=== PATIENT | female | born 1960 | race Caucasian/White ===

== ENCOUNTER 2018-06-14 10:00 | Inpatient (IN) ==
[2018-06-14 12:22] LABS: Appearance,Urine CLEAR; Bilirubin,Urine NEG (NEG); Color,Urine STRAW; Glucose,Urine (UA) NEGATIVE (NEG); Leukocyte Esterase,Urine NEG /uL (NEG); Protein,Urine NEG (NEG); Specific Gravity,Urine 1.006 (1.000-1.035); Urine Blood NEG mg/dL (<0.03); Urobilinogen,Urine NEG (NEG)
[2018-06-14 13:34] LABS: Blood Urea Nitrogen 8 mg/dl (6-20)
[2018-06-14 15:00] LABS: Basophils # (Auto) 0 K/mcL (0.0-0.3); Basophils % (Auto) 0.6 % (0.0-2.0); Eosinophils # (Auto) 0.2 K/mcL (0.0-0.7); Eosinophils % (Auto) 3.2 % (0.0-7.0); Granulocytes % (Auto) 70.8 % (38.0-78.0); Lymphocytes # (Auto) 0.9 K/mcL (1.5-4.8); Lymphocytes % (Auto) 14.5 % (15.5-49.0); Mean Cell Volume 93.4 fL (80.0-100.0); Mean Corpuscular HGB Conc 33.5 g/dL (31.0-36.0); Mean Corpuscular Hemoglobin 31.3 pg (26.0-34.0); Monocytes # (Auto) 0.7 K/mcL (0.1-0.9); Monocytes % (Auto) 10.9 % (1.0-12.0); Platelet Count 197 K/mcL (140-440); Red Cell Distribution Width 12.9 % (11.5-14.5)
[2018-06-16] MEDS ORDERED: 0.9 % SODIUM CHLORIDE 250 ML IV SCH (15:30)
[2018-06-19] MEDS ORDERED: ceFAZolin 1 GM VIAL IV SCH (06:00)
[2018-06-19] MEDS ORDERED: CELECOXIB 200 MG CAPSULE PO SCH (06:00)
[2018-06-19] MEDS ORDERED: PREGABALIN 75 MG CAPSULE PO SCH (06:00)
[2018-06-19] MEDS ORDERED: oxyCODONE 10 MG TAB.ER.12H PO SCH (06:00)
[2018-06-19] MEDS ORDERED: 0.9 % SODIUM CHLORIDE 9 ML, KETOROLAC 30 MG, ROPIVACAINE HCL/PF 49.5 ML, EPINEPHrine 0.... IJ SCH (10:00)
[2018-06-19] MEDS ORDERED: DEXAMETHASONE 10 MG/ML VIAL IV ONE (11:30)
[2018-06-19] MEDS ORDERED: KETAMINE 100 MG/ML ML IV ONE (11:30)
[2018-06-19] MEDS ORDERED: ONDANSETRON 4 MG/2 ML VIAL IV ONE (11:30)
[2018-06-19] MEDS ORDERED: TRANEXAMIC ACID 1,000 MG/10 ML VIAL IV ONE ×2 (11:30→13:07)
[2018-06-19] MEDS ORDERED: GLYCOPYRROLATE 0.2 MG/ML VIAL IV ONE (11:30)
[2018-06-19] MEDS ORDERED: ROPIVACAINE HCL/PF 20 ML VIAL IJ ONE (11:30)
[2018-06-19] MEDS ORDERED: PROPOFOL 200 MG/20 ML VIAL IV ONE (11:30)
[2018-06-19] MEDS ORDERED: fentaNYL 100 MCG/2 ML VIAL IV ONE (11:30)
[2018-06-19] MEDS ORDERED: MIDAZOLAM 2 MG/2 ML VIAL IV ONE (11:30)
[2018-06-19] MEDS ORDERED: LIDOCAINE HCL/PF 100 MG/5 ML SYRINGE IV ONE (11:30)
[2018-06-19] MEDS ORDERED: GENTAMICIN SULFATE 800 MG/20 ML VIAL IR ONE (12:12)
[2018-06-19] MEDS ORDERED: MEPERIDINE 25 MG/ML SYRINGE IV PRN (12:48)
[2018-06-19] MEDS ORDERED: IPRATROPIUM/ALBUTEROL 3 ML AMPUL.NEB NEB PRN (12:48)
[2018-06-19] MEDS ORDERED: NALOXONE HCL 0.4 MG/ML VIAL IV PRN (12:48)
[2018-06-19] MEDS ORDERED: ACETAMINOPHEN 1,000 MG/100 ML BOTTLE IV ONE (12:48)
[2018-06-19] MEDS ORDERED: ONDANSETRON 4 MG/2 ML VIAL IV PRN ×2 (12:48→13:07)
[2018-06-19] MEDS ORDERED: FLUMAZENIL 0.1 MG/ML ML IV PRN (12:48)
[2018-06-19] MEDS ORDERED: KETOROLAC 30 MG/ML VIAL IV PRN (12:48)
[2018-06-19] MEDS ORDERED: METHOCARBAMOL 1,000 MG/10 ML VIAL IV PRN (12:48)
[2018-06-19] MEDS ORDERED: BENZOCAINE/MENTHOL 1 LOZENGE PO PRN ×2 (12:48→13:07)
[2018-06-19] MEDS ORDERED: fentaNYL 100 MCG/2 ML VIAL IV PRN (12:48)
[2018-06-19] MEDS ORDERED: LACTATED RINGERS 250 ML IV PRN (12:48)
[2018-06-19] MEDS ORDERED: LACTATED RINGERS 1,000 ML IV SCH (13:00)
[2018-06-19] MEDS ORDERED: LORazepam 0.5 MG TABLET PO PRN (13:06)
--- NOTE | 2018-06-19 13:06 | Brief Operative Note ---
Date of procedure: 06/19/18 Pre-op diagnosis: right knee oa Post-op diagnosis: same Procedure: right total knee arthroplasty Grafts/Implants: Yes Anesthesia: spinal Complications: none Surgeon: Sheldon Early Medical Staff Assistant: Jacey Mack Estimated blood loss (cc): 150 Tourniquet Time (Minutes): 62 Specimens Removed/Pathology: none sent Condition: stable Disposition: PACU
[2018-06-19] MEDS ORDERED: MAGNESIUM HYDROXIDE 30 ML ORAL.SUSP PO PRN (13:07)
[2018-06-19] MEDS ORDERED: BISACODYL 10 MG SUPP.RECT PR PRN (13:07)
[2018-06-19] MEDS ORDERED: ACETAMINOPHEN 325 MG TABLET PO PRN (13:07)
[2018-06-19] MEDS ORDERED: POLYETHYLENE GLYCOL 3350 17 GM PACKET PO PRN (13:07)
[2018-06-19] MEDS ORDERED: FLEETS ADULT ENEMA PR PRN (13:07)
[2018-06-19] MEDS ORDERED: ONDANSETRON ODT 4 MG TABLET SL PRN (13:07)
--- NOTE | 2018-06-19 14:08 | Operative Note ---
DATE OF OPERATION: 06/19/2018 PREOPERATIVE DIAGNOSIS: Degenerative joint disease, right knee. POSTOPERATIVE DIAGNOSIS: Degenerative joint disease, right knee. PROCEDURE: Right total knee arthroplasty. SURGEON: Hi Early M.D. [employer]UCK [employer] SURGEON: Jacey Mack PA-C. ANESTHESIA: Spinal with LMA assist. ESTIMATED BLOOD LOSS: 150 mL. COMPLICATIONS: None noted. SPECIMENS REMOVED: None. DRAINS: None. TOURNIQUET TIME: 68 minutes at 300 mmHg. IMPLANTS: DePuy CMW2 bone cement 20 grams x4; DePuy Attune tibial base fixed bearing size 4, cemented; DePuy Attune femoral posterior stabilized size 5 right, narrow; DePuy Attune tibial insert fixed bearing posterior stabilized size 5, 5 mm AOX; DePuy Attune patella medialized dome 35 mm, cemented AOX. INDICATIONS: The patient has had a long-standing history of worsening pain in the knee that has failed conservative treatment. Radiographs have confirmed advanced degenerative joint disease. After a long discussion about treatment options, the patient elected to proceed with a knee arthroplasty. The risks and benefits were discussed with the patient in detail including, but not limited to, the risks of anesthesia, problems with the heart or lungs related to anesthesia, infection, compromise or injury to the nerves and blood vessels, deep venous thrombosis, pulmonary embolism, pneumonia, continued pain after surgery, worsening pain or symptoms after surgery, swelling, loss of motion, instability, leg length discrepancy, and need for repeat surgery. DESCRIPTION OF PROCEDURE: The patient was seen in the pre-anesthesia waiting room where all questions were answered and the correct side and site were identified and marked. The patient was transferred to the operating room and administered the anesthetic and given pre-operative antibiotics. A time-out was then called. The extremity was prepped and draped, exsanguinated, and the tourniquet was inflated to 300 mmHg. A midline skin incision was then made with a standard medial parapatellar arthrotomy. Debridement of the menisci, ACL, and PCL was performed followed by balancing releases in the medial lateral plane. We then established intramedullary access to both the femur and tibia in a standard fashion. The femoral guide mariano was initially placed with the distal femoral guide, pinned into place, and the distal femoral cut was performed and checked with a flat plate. We then turned our attention to the tibia. The intramedullary guide was placed with the proximal tibial cutting block. The block was appropriately positioned off the affected side, varus and valgus was checked with the extra-medullary guide, and the block was pinned into place. The proximal tibial cut was performed and the tibia was prepared for the tibial implant with appropriate rotation. The tibia, femur, and posterior compartment were debrided of osteophytes, loose bodies, and meniscal fragments We then used the gap balancing technique to balance extension with the first two cuts and good balancing was obtained with a 10 millimeter gap block. We turned our attention back to the femur and used the referencing block and implant to size appropriately. Using the gap balancing technique for the flexion space we set our rotation of the femur off the tibial cut. Anesthesia gave the patient 1 gram of Tranexamic Acid via an intravenous route. We placed the 4 in 1 cutting block and made anterior, posterior, and chamfer cuts. Box plasty cuts were then made in a standard fashion for the posterior stabilized prosthesis. We then completed osteophyte release and posterior capsule release from the posterior compartment. Trials were placed and we chose the polyethylene insert thickness that provided the best stability in all planes. With the trials in place, we did a measured resection for a resurfacing patella. We sized the patella and placed the patella trial and performed a lateral facetectomy with the saw and rongeur. Good tracking was obtained. We removed all trials, irrigated and dried all cut surfaces. We cemented the components into place including tibia, femur and patella. We placed a trial liner and held the knee in full extension with the patella compressed while the cement cured. We then removed all excess cement and placed the final polyethylene tibiofemoral component. Irrigation with 3 liters of antibiotic saline was then performed using jet-lavage. We let the tourniquet down and coagulated bleeding vessels. We injected a 100 cubic centimeter volume including Ropivacaine 49.25 cubic centimeters at 5 milligrams per cubic centimeter, Ketorolac 30 milligrams, and Epinephrine 0.5 milligrams into 100 cubic centimeters volume of normal saline. We closed the retinaculum with #2 Stratafix and 0 Vicryl. We closed the subcutaneous tissue and skin in layers out to Dermabond on the skin. A sterile pressure dressing was applied. All needle and sponge counts were correct. The patient was transferred to the recovery room in stable condition. SHRUTHI:[email or web address] Job ID: [id number] Doc ID: [id number] Hi Early MD
[2018-06-19] MEDS: 0.9 % SODIUM CHLORIDE 1,000 ML IV SCH ×2 (14:55→22:35)
[2018-06-19] MEDS: 0.9 % SODIUM CHLORIDE 10 ML SYRINGE IV SCH ×2 (14:56→20:13)
[2018-06-19] MEDS: HYDROcodone/APAP 10/325MG TABLET PO PRN ×2 (16:22→20:12)
--- NOTE | 2018-06-19 16:35 | XRay Report ---
CLINICAL INFORMATION: ITS.REASON: Post-Op Total Knee COMPARISON: None. FINDINGS: Total knee prostheses is anatomically aligned. No osseous abnormalities. Soft tissue swelling and gas seen as expected IMPRESSION: Negative Interpreted and Authenticated by: Sheldon Alexander 06/19/18
[2018-06-19] MEDS: KETOROLAC 30 MG/ML VIAL IV SCH (18:30)
[2018-06-19] MEDS: METHOCARBAMOL 750 MG TABLET PO PRN (18:31)
[2018-06-19] MEDS: ceFAZolin 1 GM VIAL IV SCH (19:38)
[2018-06-19] MEDS: DULoxetine 30 MG CAPSULE PO SCH (20:12)
[2018-06-19] MEDS: ZOLPIDEM 5 MG TABLET PO SCH (20:12)
[2018-06-19] MEDS: ASPIRIN 325 MG ENTERIC COATED TABLET PO SCH (20:12)
[2018-06-19] MEDS: SENNOSIDES 1 TABLET PO SCH (20:12)
[2018-06-19] MEDS: DOCUSATE SODIUM 100 MG CAPSULE PO SCH (20:13)
[2018-06-20] MEDS: HYDROcodone/APAP 10/325MG TABLET PO PRN ×6 (00:14→21:32)
[2018-06-20] MEDS: KETOROLAC 30 MG/ML VIAL IV SCH ×5 (00:15→23:37)
[2018-06-20] MEDS: ceFAZolin 1 GM VIAL IV SCH (03:08)
[2018-06-20] MEDS: 0.9 % SODIUM CHLORIDE 10 ML SYRINGE IV SCH ×3 (06:24→20:33)
--- NOTE | 2018-06-20 06:41 | Discharge Summary ---
Ortho Discharge - TKA - Patient Instructions Diet: Regular Diet Activity: activity as tolerated, ambulate with assistive device, weight bearing as tolerated Total Knee Protocol: For Total Knee: Start ROM CATERINA with stationary bike or rocking chair. Work on gaining full extension of knee. Posterior dislocation precautions provided. Hip abductor strengthening and gait training instructions provided. Apply Cryocuff as instructed. Dressing Care: May shower in 2 days, Other (dermabond- dry and replace gauze after surgery) - Follow Up Plan Follow Up Appointments: Satish Isaacs PA-C [Physician Line Tender [facility]] - 07/04/18 9:40 am Disposition: Home, Self-Care Prognosis: Good Rehab Potential: Good I certify that the patient requires SNF services: No Overall status at discharge: patient is progressing back to baseline - Orders For Discharge Prescriptions: Aspirin [Ecotrin] 325 mg PO BID #60 tab.ec HYDROcodone/APAP 10/325MG [[place] 10-325Mg] 1 - 2 tab PO Q4HP PRN #60 tab PRN Reason: Pain Level 3-6 Additional Discharge Orders: Physical Therapy at Discharge - TKA Location: None Selected
--- NOTE | 2018-06-20 06:44 | Orthopedic Progress Note ---
Subjective Patient information: Note initiated : 06/20/18 at 6:42 am Service Date, if different from initiated Date: [] Patient: Carmen Coley 57 y/o F admitted on 06/19/18 for Right Total Knee Arthroplasty. Chief Complaint: [POD #1 s/p left total knee arthroplasty Doing well. Reports mild to moderate pain but no CP, SOB, numbness, tingling or calf pain. Ambulating and urinating independently. No questions or concerns.] Objective Vital signs: Vital Signs Temp Pulse Resp BP Pulse Ox 06/20/18 03:10 98.7 F 76 16 95/60 91 06/20/18 00:00 98.2 F 80 95 H 105/63 92 06/19/18 21:45 96 06/19/18 20:00 97.3 F 66 16 111/72 96 06/19/18 16:09 88 109/72 99 06/19/18 15:54 77 108/78 98 06/19/18 15:39 77 118/79 97 06/19/18 15:24 75 112/76 98 06/19/18 15:09 79 115/77 95 06/19/18 14:54 83 121/80 99 06/19/18 14:39 86 115/77 99 06/19/18 14:27 97.2 F 74 14 125/61 99 06/19/18 14:21 98.3 F 66 118/57 95 06/19/18 14:07 97.2 F 89 16 135/63 94 06/19/18 13:54 96.9 F L 93 H 12 130/64 96 06/19/18 13:49 96 H 15 131/70 99 06/19/18 13:44 93 H 14 110/60 100 06/19/18 13:38 97 F 79 12 105/57 98 06/19/18 13:33 82 10 L 101/55 98 06/19/18 13:30 83 9 L 100/55 100 06/19/18 13:27 96.9 F L 83 10 L 95/50 96 06/19/18 08:44 88 06/19/18 08:00 98.9 F 18 137/82 96 06/19/18 07:33 18 Intake and Output 06/19/18 06/20/18 06/20/18 21:59 05:59 13:59 Intake Total 1979 1508 / 1508 Output Total 1050 / 1050 700 / 700 Balance 930 / 930 808 / 808 Intake: IV 958 / 958 Sodium Chloride 0.9% 1,000 ml @ 958 / 958 125 mls/hr IV .Q8H [facility] Rx#: [id number] Oral 180 / 180 550 / 550 IV - Manual Only 1800 / 1800 Output: Void Amount 850 / 850 700 / 700 Estimated Blood Loss 200 / 200 Other: Meal Dinner Percent of Meal Consumed 85% Feeding Ability Independent Weight 192 lb 8 oz Intake & Output: Intake & Output 06/19/18 06/20/18 06/20/18 21:59 05:59 13:59 Intake Total 1979 1508 / 1508 Output Total 1050 / 1050 700 / 700 Balance 930 / 930 808 / 808 Weight 192 lb 8 oz Intake: IV 958 / 958 Sodium Chloride 0.9% 1,000 ml @ 958 / 958 125 mls/hr IV .Q8H [facility] Rx#: [id number] Oral 180 / 180 550 / 550 IV - Manual Only 1800 / 1800 Output: Void Amount 850 / 850 700 / 700 Estimated Blood Loss 200 / 200 Other: Meal Dinner Percent of Meal Consumed 85% Feeding Ability Independent Incision: Yes healing, No draining, No red, No swollen, No inflamed, Yes clean and dry Incision clean and dry: Yes Dressing: Yes clean, Yes dry, Yes intact Weight bearing status: as tolerated Range of motion: full b/l ankles/feet. knee 0-5 deg ext/40 deg flex Neurological exam IM: Yes alert, Yes oriented X3, Yes motor sensory intact, Yes neurovascular intact Extremities exam IM: No calf tenderness, Yes normal capillary refill, Yes normal inspection, No Obdulia's sign, Yes Foot pink and warm, Yes neurovascular intact - Periperhal Pulses Peripheral pulses: 2+: dorsalis pedis (L), dorsalis pedis (R), posterior tibialis (L), posterior tibialis (R) - Labs CBC & BMP: 06/14/18 10:28 06/14/18 10:28 Labs: Orthopedic Labs 06/14/18 10:28 PT 13.3 INR 1.0 06/20/18 06/14/18 05:50 10:28 Hgb Pending 14.7 Hct Pending 43.9 Assessment and Plan (1) Knee osteoarthritis POD #1 s/p right TKA: -pain control -WBAT -ASA 325mg BID x 4 weeks for DVT prophylaxis. Foot SCD boots -d/c to home 06/21/18 -PT outpatient on d/c -f/u office 10-14 days for PO -dermabond protocol Status: Acute
[2018-06-20] MEDS: 0.9 % SODIUM CHLORIDE 1,000 ML IV SCH ×3 (07:00→20:33)
[2018-06-20] MEDS: METHOCARBAMOL 750 MG TABLET PO PRN ×3 (07:01→21:32)
[2018-06-20] MEDS: buPROPion 150 MG TAB.XL.24H PO SCH (07:57)
[2018-06-20] MEDS: ASPIRIN 325 MG ENTERIC COATED TABLET PO SCH ×2 (07:57→20:13)
[2018-06-20] MEDS: DOCUSATE SODIUM 100 MG CAPSULE PO SCH ×2 (07:58→20:13)
[2018-06-20] MEDS: SENNOSIDES 1 TABLET PO SCH (20:13)
[2018-06-20] MEDS: ZOLPIDEM 5 MG TABLET PO SCH (20:13)
[2018-06-20] MEDS: DULoxetine 30 MG CAPSULE PO SCH (20:13)
[2018-06-21] MEDS: HYDROcodone/APAP 10/325MG TABLET PO PRN ×3 (02:21→11:06)
[2018-06-21] MEDS: 0.9 % SODIUM CHLORIDE 1,000 ML IV SCH (03:54)
[2018-06-21] MEDS: METHOCARBAMOL 750 MG TABLET PO PRN ×2 (04:12→10:40)
[2018-06-21] MEDS: 0.9 % SODIUM CHLORIDE 10 ML SYRINGE IV SCH (05:44)
[2018-06-21] MEDS: KETOROLAC 30 MG/ML VIAL IV SCH (05:44)
--- NOTE | 2018-06-21 07:13 | Orthopedic Progress Note ---
Subjective Patient information: Note initiated : 06/21/18 at 7:12 am Service Date, if different from initiated Date: [] Patient: Carmen Coley 57 y/o F admitted on 06/19/18 for Right Total Knee Arthroplasty. Chief Complaint: [] Interval history: doing well. pain under control Objective Vital signs: Vital Signs Temp Pulse Pulse Resp BP Pulse Ox 06/21/18 06:37 96.7 F L 77 12 115/77 90 06/21/18 05:47 98 06/21/18 04:11 97 06/21/18 04:00 97.9 F 95 H 18 93/62 86 L 06/20/18 23:38 98.1 F 81 16 94/59 96 06/20/18 19:32 98.2 F 91 H 18 106/62 95 06/20/18 16:00 97.3 F 86 16 106/65 94 06/20/18 12:00 97.4 F 88 16 100/63 93 06/20/18 08:00 97.0 F 91 H 16 125/79 92 Intake and Output 06/20/18 06/21/18 06/21/18 21:59 05:59 13:59 Intake Total 480 / 480 700 / 700 Output Total 700 / 700 Balance -220 / -220 700 / 700 Intake: Oral 480 / 480 700 / 700 Output: Void Amount 700 / 700 Other: Meal Dinner Percent of Meal Consumed 75% Feeding Ability Independent Stool Size Large Stool Color Brown Stool Consistency Loose # Voids 2 # Bowel Movements 1 Weight 191 lb Intake & Output: Intake & Output 06/20/18 06/21/18 06/21/18 21:59 05:59 13:59 Intake Total 480 / 480 700 / 700 Output Total 700 / 700 Balance -220 / -220 700 / 700 Weight 191 lb Intake: Oral 480 / 480 700 / 700 Output: Void Amount 700 / 700 Other: Meal Dinner Percent of Meal Consumed 75% Feeding Ability Independent Stool Size Large Stool Color Brown Stool Consistency Loose # Voids 2 # Bowel Movements 1 Incision: Yes healing Incision clean and dry: Yes Dressing: Yes clean, Yes dry, Yes intact Weight bearing status: full Neurological exam IM: Yes abnormal gait, Yes alert, Yes oriented X3, Yes motor sensory intact, Yes neurovascular intact Extremities exam IM: No calf tenderness, Yes Foot pink and warm, Yes neurovascular intact - Labs CBC & BMP: 06/21/18 05:29 06/14/18 10:28 Labs: Orthopedic Labs 06/14/18 10:28 PT 13.3 INR 1.0 06/21/18 06/20/18 06/14/18 05:29 05:50 10:28 Hgb 11.1 L 12.4 14.7 Hct 31.9 L 36.8 43.9 Assessment and Plan (1) Knee osteoarthritis pod 2 s/p right tka wbat pain control dvt prophylaxis dc planning Status: Acute
[2018-06-21] MEDS: ASPIRIN 325 MG ENTERIC COATED TABLET PO SCH (08:26)
[2018-06-21] MEDS: DOCUSATE SODIUM 100 MG CAPSULE PO SCH (08:26)
[2018-06-21] MEDS: buPROPion 150 MG TAB.XL.24H PO SCH (08:26)
== END 2018-06-21 11:12 | disposition home or self-care (01) | DRG 470 ==
LOC: MEDSUR 06-19 07:33
PROVIDERS: ADMIT Orthopaedic Surgery Sports Medicine; ATTEND Orthopaedic Surgery Sports Medicine